=== PATIENT | male | born 1945 | race Caucasian/White ===

== ENCOUNTER 2018-09-29 07:57 | Emergency (ER) | payer OTHER ==
[~2018-09-29] VITALS: Ht 165.1 cm; Wt 80.7 kg
== END 2018-09-29 11:37 | disposition home or self-care (01) ==
LOC: ER 07:57
DX: B34.9 Viral infection, unspecified (principal); M54.5 Low back pain; J11.1 Influenza due to unidentified influenza virus with other respiratory manifestations